=== PATIENT | male | born 1965 | race African-American/Black ===

== ENCOUNTER → 2016-07-27 | Outpatient (CLI) | payer MEDICARE ==
--- NOTE | 2016-07-27 13:28 | MR ---
EXAMINATION TYPE: MR brain wo con DATE OF EXAM: 07/27/2016 1:17 PM COMPARISON: NONE HISTORY: Seizures T1-weighted sagittal, T2, FLAIR, and diffusion axial, and T2 coronal coronal views of the brain are s ubmitted. There is no evidence of acute ischemia. The ventricles, basal cisterns, and sulci overlying the conv exities are consistent with the patient's age. There is no mass effect. Craniocervical junction maintained. Sella turcica has a normal appearance. No cerebellopontine angle mass. Changes of chronic sinusitis noted. No abnormal signal visualized within the visualized temporal lobes. IMPRESSION: 1. No acute intracranial process
== END | disposition home or self-care (01) ==
LOC: RADMRIMAIN 12:39
PROVIDERS: ATTEND Psychiatry & Neurology Neurology
DX: R56.9 Unspecified convulsions (principal)
CPT/HCPCS: 70551